=== PATIENT | male | born 1955 | race Caucasian/White ===

== ENCOUNTER → 2017-01-03 | Outpatient (CLI) | payer OTHER ==
[~2017-01-03] MED LIST: ALEVE220 MG PO; ALLOPURINOL100 MG PO; COSOPT EYE DROPS5 ML BOTH EYES; FLOMAX0.4 MG PO; HYDROCHLOROTH12.5 M3 PO; HYDROCHLOROTHIA25 MG PO; LIPITOR40 MG PO; MICROZIDE12.5 M1 PO; NAPROSYN250 MG PO; NASAL CROM NS; PERCOCET 5/31 TABLET PO; SYNTHROID75 MCG PO; UROCIT-K15 MEQ PO; ZOFRAN4 MG PO
== END | disposition home or self-care (01) ==
LOC: CDC 14:57
DX: R94.31 Abnormal electrocardiogram [ECG] [EKG] (principal)
CPT/HCPCS: 93000

== ENCOUNTER → 2017-01-08 | Outpatient (CLI) | payer OTHER ==
[~2017-01-08] VITALS: Ht 175.3 cm; Wt 65.8 kg
== END | disposition home or self-care (01) ==
LOC: AMB 09:54
PROC: 0TF7XZZ Fragmentation in Left Ureter, External Approach (ICD-10-PCS; principal; 2017-01-08)
DX: N20.2 Calculus of kidney with calculus of ureter (principal); Z87.442 Personal history of urinary calculi; I10 Essential (primary) hypertension; E78.5 Hyperlipidemia, unspecified; M10.9 Gout, unspecified; Z87.891 Personal history of nicotine dependence; Z91.041 Radiographic dye allergy status
CPT/HCPCS: 74000; J1100; J2405; J3010